=== PATIENT | male | born 1965 | race Caucasian/White ===

== ENCOUNTER 2018-02-03 10:05 | Emergency (ER) | payer OTHER, SELFPAY ==
[2018-02-03 10:06] VITALS: BP 150/10; PULSE 106; RESP 14; TEMP 35.9; BMI 40.1
[2018-02-03 10:24] VITALS: BP 155/100; PULSE 87; RESP 16
[2018-02-03] MEDS: Naproxen 500 MG Tablet PO (10:28)
--- NOTE | 2018-02-03 10:35 | RAD_ITS ---
STUDY: X-RAY - RIGHT KNEE REASON FOR EXAM: Male, 52 years old. One-month history of pain. TECHNIQUE: 4 view(s) of the knee. COMPARISON: None. FINDINGS: Normal visualized distal femur. Normal visualized proximal tibia and fibula. Normal proximal tibiofibular articulation. There is mild degenerative arthrosis of the medial femorotibial compartment. Normal lateral femorotibial compartment. Normal patellofemoral articulation. Questionable 8.3 mm x 4.5 mm intra-articular loose body. The soft tissue structures are unremarkable. RAD/Knee 4 or More Views IMPRESSION: Degenerative arthrosis. Questionable 8.3 mm x 4.5 mm intra-articular loose body. Electronically Signed: Chandelr Medina MD at 12:34 EDT Tel [phone], Service support ,
--- NOTE | 2018-02-03 10:41 | RAD_ITS ---
STUDY: X-RAY - RIGHT SHOULDER REASON FOR EXAM: Male, 52 years old. 3 month history of shoulder pain. TECHNIQUE: 4 view(s) of the shoulder. COMPARISON: None. FINDINGS: Normal glenohumeral articulation. There is degenerative arthrosis of the acromioclavicular joint without inferior osseous spur formation. Normal acromion. Normal humeral head and visualized proximal humerus. The soft tissue structures are unremarkable. Normal visualized pulmonary apex. RAD/Shoulder min 2 Views IMPRESSION: Degenerative changes of the left acromioclavicular joint. Electronically Signed: Chandler Medina MD at 11:12 EDT Tel [phone], Service support ,
--- NOTE | 2018-02-03 10:45 | RAD_ITS ---
STUDY: X-RAY - LEFT KNEE REASON FOR EXAM: Male, 52 years old. One-month history of pain. TECHNIQUE: 4 view(s) of the knee. COMPARISON: None. FINDINGS: Normal visualized distal femur. Normal visualized proximal tibia and fibula. Normal proximal tibiofibular articulation. There is mild degenerative arthrosis of the medial femorotibial compartment. Normal lateral femorotibial compartment. Normal patellofemoral articulation. The soft tissue structures are unremarkable. RAD/Knee 4 or More Views IMPRESSION: Degenerative arthrosis. Electronically Signed: Chandler Medina MD at 11:26 EDT Tel [phone], Service support ,
--- NOTE | 2018-02-03 11:57 | ED.DCSUM_ITS ---
- ER Visit Summary Date of Service: 02/03/18 Chief Complaint: Left shoulder and bilateral knee pain History of Present Illness: The patient is a [address] Luis Gallardo. 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 He feels that over the past 18 months doing this he has injured his left shoulder. States that he has had pain in his left shoulder for the past 3-4 months. It is a constant aching pain that is 6 out of 10 currently and 10 out of 10 at worst. Reports that it is sharp after moving carts. He reports that he has bilateral knee pain. States that that is 8 out of 10 at worst and through 10 currently. It is increased with getting into his truck or standing from a seated position. He denies any trauma. No fall or MVA. Physical Examination: Vitals: Stable. Afebrile. Neck: No vertebral tenderness. Full ROM without difficulty. Cleared by NEXUS criteria. Back: No vertebral tenderness. General: A&O x 3. NAD. Cardiovascular exam: Regular rate and rhythm, no murmur, rub or gallop. Respiratory exam: Chest nontender. No crepitus. Clear to auscultation bilaterally. No wheezes or stridor. Abdominal exam: Soft, nontender, nondistended, normal bowel sounds. No pain in RUQ or LUQ specifically. No peritoneal signs. Extremity: Mild tenderness palpation is diffuse over his entire left deltoid. There is no localized tenderness. He is neurovascular intact distal this with normal sensation light touch and less than 2 second capillary refill. He has a 2+ radial pulse. No pain with range of motion. Mild tenderness palpation is diffuse over both knees. No pain or ligamentous instability with anterior posterior drawer or medial lateral stress. He is neurovascular intact distally. Test Results: Clinical Impression(s) from Imaging Studies Knee X-Ray 02/03/18 10:35 IMPRESSION: Degenerative arthrosis. Questionable 8.3 mm x 4.5 mm intra-articular loose body. Electronically Signed: Chandler Medina MD at 12:34 EDT Tel [phone], Service support , Shoulder X-Ray 02/03/18 10:41 IMPRESSION: Degenerative changes of the left acromioclavicular joint. Electronically Signed: Chandler Medina MD at 11:12 EDT Tel [phone], Service support , Knee X-Ray 02/03/18 10:45 IMPRESSION: Degenerative arthrosis. Electronically Signed: Chandler Medina MD at 11:26 EDT Tel [phone], Service support , Emergency Department Course and Treatment: Patient was treated with naproxen and is resting comfortably. Treatment Plan: I discussed with the patient that I cannot say in good conscious that this is related to his work. He feels sure that it is. He will be discharged on naproxen instructed to follow-up at [facility] for further evaluation of his shoulder and knees. I did discuss them the possibility that he may have damaged the rotator cuff in his left shoulder and he understands this. Also discussed possibility of meniscal injuries in his knees. Disposition: To home in improved and stable condition. Impression: 1. Arthritis left AC joint. 2. Arthritis to knees bilaterally. This note was generated with [employer] dictation software. It may contain incorrect words, spelling, and punctuation that were not noted in review of the chart prior to signing ED Disposition - Plan for ED Patient: Disposition: Home or Assisted Living Chief Complaint: Upper Extremity Injury Instructions: ED Shoulder Pain UKO Prescriptions: Naproxen [Naprosyn] 500 mg PO BID #14 tablet [facility]errals: [facility]YS[facility]] - As soon as possible
[2018-02-03 12:50] VITALS: PULSE 80; O2SAT 99
== END 2018-02-03 12:52 | disposition home or self-care (01) ==
PROVIDERS: Emergency Provider Emergency Medicine; Family Provider Family Medicine; PCP Family Medicine
DX: M19.012 Primary osteoarthritis, left shoulder (principal); M17.0 Bilateral primary osteoarthritis of knee
CPT/HCPCS: 73030; 73564; 99284

== ENCOUNTER 2018-06-26 10:00 | Outpatient (RCR) | payer MEDICAID, SELFPAY ==
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
--- OUTSIDE RECORDS SUMMARY | 2018-08-03 03:24 | XMS RPT_ITS ---
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 Repository [id number]: [phone] [id number] [phone] () Date:[id number], [place] [address]JG: 02/03/2018 Secondary MCKAYLA Salter Naz [facility] VO[place] Community Number: [id number] Hospital [id number] Repository Date:7512-28-86[id number] [place] [id number]: 02/03/2018 Tertiary NOT GIVENSARAVANAN Naz Insurance:SELF PAY [facility] Number: Effective Repository Date:2018-02-03
--- NOTE | 2018-08-20 14:25 | HP.PTDCSUM ---
HP - PT D/C Summary It has been my pleasure to treat MCKAYLA RAMSAY under orders from ANY Swartz, for the diagnosis of BILATERAL KNEE ARTHRITIS,PROBABLE RIGHT MENISCUS DEGENERATION for a total of 6 visit(s). Discharge Date: Please see the following information for a summary of their discharge status. - Subjective Subjective: Some improvement in knee's and shoulder. Paln to RTD - Pain Bilateral Knee Pain Intensity (Out of 10): 7 Left Shoulder Pain Intensity (Out of 10): 5 Right Shoulder Pain Intensity (Out of 10): 5 - Overall Improvement % Improvement: 50 - Objective Objective/Function: POSTURE: ROUNDED SHOULDERS HEAD FOWARD. GAIT: NORMAL JOSELINE RECIPROCAL. AROM: 0-110 degrees supine flexion. MMT: quads/hams 4/5,hip flexion 4-/5,ankle 4/5. RTC 4-/5 ,SUPRASPINATOUS 3+/5. AROM: shoulder flexion 120 degrees,110 abduction ,ER 80 degrees - Goals Goal 1:: Independant with HEP. Goal Progress: Progressing Goal 2:: Patient to decrease pain by 60% or greater to improve function with walking Goal Progress: Progressing Goal 3:: Patient increase strength by 4/5 to improve function with walking and stairs. Goal Progress: Progressing Goal 4:: Patient improve ROM right knee by 5 degrees or greater to improve stairs Goal Progress: Progressing Goal 5:: Patient to improve LFES score by 5-10points to improve QOL. Goal Progress: Progressing - Plan Plan: RTD - D/C Information If there are questions or concerns regarding this patient's physical therapy, please feel free to call me at [phone]. Thank you for the referral of this patient. Sincerely, Martín Beebe, PT, Cert MDT, OCS
== END 2018-06-26 19:00 | disposition home or self-care (01) ==
LOC: PT 10:00
PROVIDERS: Family Provider Family Medicine; PCP Family Medicine; Referring Provider Physician Assistant; Visit Provider Physician Assistant
DX: M17.0 Bilateral primary osteoarthritis of knee (principal); M25.812 Other specified joint disorders, left shoulder
CPT/HCPCS: 97110; 97162; 97530

== ENCOUNTER → 2018-07-08 16:49 | Outpatient (CLI) | payer MEDICAID, SELFPAY ==
[2018-06-27 11:24] VITALS: BMI 40.1
--- NOTE | 2018-07-08 16:50 | MRI_ITS ---
STUDY: MRI LEFT KNEE REASON FOR EXAM: Left knee pain, evaluate for internal derangement. TECHNIQUE: Standardized fat and water weighted pulse sequences were obtained in all 3 orthogonal planes. COMPARISON: Radiographs 02/03/2018. FINDINGS: Although there is image degradation secondary to patient motion on the proton-density sagittal sequence, there is still significant diagnostically useful information available from this examination. There is a suspected small oblique tear of the inferior articular surface of the posterior horn of the medial meniscus (proton-density sagittal images 5, 6). Normal hyaline cartilage of the medial femorotibial compartment. Normal medial femoral condyle and tibial plateau. Normal medial collateral ligamentous complex (MCL). Normal distal semimembranosus, gracilis and semitendinosus tendons. Normal lateral meniscus. Normal hyaline cartilage of the lateral femorotibial compartment. Normal lateral femoral condyle and tibial plateau. Normal proximal tibiofibular articulation. Normal lateral collateral (fibular) ligament. Normal popliteus tendon. Normal biceps femoris tendon. Normal anterior cruciate ligament (ACL). Normal posterior cruciate ligament (PCL). Normal congruent patellofemoral articulation. Normal hyaline cartilage of the patellofemoral compartment. Normal medial and lateral patellar retinaculum. Normal visualized quadriceps tendon. There is enthesopathy of the patella. Normal patellar tendon. Normal Hoffa's fat pad. There is a minimal volume of fluid in the knee joint. There is mild prepatellar bursitis (T2 sagittal images 10-12). The otherwise visualized osseous structures are unremarkable. MRI/Lower Ext Joint Only (Routine) IMPRESSION: Suspected small medial meniscal tear. Mild prepatellar bursitis. Electronically Signed: Vini Westbrook MD at 10:37 EST Tel , Service support ,
--- NOTE | 2018-07-08 16:50 | MRI_ITS ---
STUDY: MRI RIGHT KNEE REASON FOR EXAM: Right knee pain, knee surgery in 1995. TECHNIQUE: Standardized fat and water weighted pulse sequences were obtained in all 3 orthogonal planes. COMPARISON: Radiographs 02/03/2018. FINDINGS: There is a flap tear of the medial meniscus with a displaced fragment in the medial gutter (T2 coronal images 8-12). There is mild arthrosis of the medial femorotibial compartment with mild partial-thickness chondral loss of the medial femoral condyle (T2 sagittal image 5). Normal medial femoral condyle and tibial plateau. Normal medial collateral ligamentous complex (MCL). Normal distal semimembranosus, gracilis and semitendinosus tendons. Normal lateral meniscus. There are postsurgical changes with a healed osteochondral lesion of the lateral femoral condyle (proton-density sagittal images 32-34). Normal proximal tibiofibular articulation. Normal lateral collateral (fibular) ligament. Normal popliteus tendon. Normal biceps femoris tendon. Normal anterior cruciate ligament (ACL). Normal posterior cruciate ligament (PCL). Normal congruent patellofemoral articulation. Normal hyaline cartilage of the patellofemoral compartment. Normal medial and lateral patellar retinaculum. Normal visualized quadriceps tendon. The patella enthesopathy Normal patellar tendon. Normal Hoffa's fat pad. There is a small joint effusion. There is an intra-articular body posterior to the root of the posterior horn of the medial meniscus (T2 coronal images 5, 6) measuring 0.8 cm in length. There is mild edema in the anterior and medial subcutis adipose space. The otherwise visualized osseous structures are unremarkable. MRI/Lower Ext Joint Only (Routine) IMPRESSION: Medial meniscal tear. Mild arthrosis of the medial femorotibial compartment. Healed osteochondral lesion of the lateral femoral condyle. Posterior intra-articular body. Small joint effusion. Electronically Signed: Vini Westbrook MD at 10:36 EST Tel , Service support ,
== END ==
PROVIDERS: Family Provider Family Medicine; PCP Family Medicine; Referring Provider Physician Assistant; Visit Provider Physician Assistant
DX: M17.0 Bilateral primary osteoarthritis of knee (principal); M23.91 Unspecified internal derangement of right knee; M23.92 Unspecified internal derangement of left knee
CPT/HCPCS: 73721

== ENCOUNTER 2018-07-29 10:18 | Day surgery (SDC) | payer MEDICAID, SELFPAY ==
[2018-07-21 08:21] VITALS: BMI 41.1
[2018-07-29 10:57] VITALS: BP 136/65; PULSE 68; RESP 18; TEMP 36.9; O2SAT 99; BMI 41.5
[2018-07-29] MEDS: Bupivacaine Mpf 0.5% 30 ML VIAL (11:09)
[2018-07-29] MEDS: Cefazolin 2 GM in 0.9% Normal Saline 100 ML IV (11:50)
[2018-07-29] MEDS: MethylPREDNISolone Acetate 80 MG/ML Vial (12:55)
[2018-07-29] MEDS: Morphine 4 MG/ML Syringe (12:55)
[2018-07-29] MEDS: Bupiv/Epi 0.5% Mpf 30 ML Vial (13:00)
--- NOTE | 2018-07-29 13:14 | DCINST_ITS ---
Additional Instructions: Ice and elevate next 72 hours .keep dressing on clean and dry for 48 hours then may remove begin showering daily but do not submerge in tub or pool. After shower may apply Band-Aids . Encourage knee range of motion weightbearing as tolerated, use crutches until confident in knee then may discontinue. No strenuous activity. When not ambulating keep iced and elevated next 72 hours. Allergies/Adverse Reactions: Allergies No Known Allergies Allergy (Verified 07/22/18 13:03) Medications to take at Discharge Ibuprofen 200 mg PO PRN PRN 07/22/18 Hydrocodone Bitart/Apap 5-325 [[place] 5MG-325MG] 1 - 2 tablet PO Q4H PRN PRN 5 Days #50 tablet 07/29/18 The following prescriptions were given: Hydrocodone Bitart/Apap 5-325 [[place] 5MG-325MG] 1 - 2 tablet PO Q4H PRN PRN 5 Days #50 tablet PRN Reason: Pain Primary Care Physician: Luis Gallardo DO [Primary Care Provider] - Test Results: Test results from this visit will be discussed in further detail at your follow- up appointment, if applicable. Please Follow Up With: Jin Neely DO - 2 wk
[2018-07-29 13:19] VITALS: BP 136/65; BP 153/98; PULSE 74; RESP 16; TEMP 36.3; O2SAT 94
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
[2018-07-29 13:30] VITALS: BP 136/65; BP 150/88; PULSE 76; RESP 16; O2SAT 95
[2018-07-29 13:45] VITALS: BP 136/65; BP 142/84; PULSE 77; RESP 16; O2SAT 94
[2018-07-29 13:54] VITALS: BP 136/65; BP 144/76; PULSE 74; RESP 16; TEMP 36.8; O2SAT 94
[2018-07-29 14:24] VITALS: BP 136/65; BP 143/74; PULSE 74; RESP 16; TEMP 36.8; O2SAT 94
== END 2018-07-29 14:26 | disposition home or self-care (01) ==
LOC: SDC 10:18 → AC 10:19
PROVIDERS: Family Provider Family Medicine; PCP Family Medicine; Referring Provider Orthopaedic Surgery; Visit Provider Orthopaedic Surgery
PROC: (CPT 29870; principal; 2018-07-29 11:30)
DX: M23.221 Derangement of posterior horn of medial meniscus due to old tear or injury, right knee (principal); Z87.891 Personal history of nicotine dependence; I10 Essential (primary) hypertension; G25.81 Restless legs syndrome; M25.861 Other specified joint disorders, right knee
CPT/HCPCS: 29881; J7120; J2405

== ENCOUNTER 2018-09-16 13:51 | Outpatient (RCR) | payer MEDICAID, SELFPAY ==
[2018-09-08 09:05] VITALS: BMI 41.5
--- NOTE | 2018-09-18 15:47 | HP.OTFCE_ITS ---
HP OT Functional Capacity Eval - Task Lift Floor (Occasional 1-33% of Day): 50lb Floor (Frequent 34-66% of Day): 25lb Floor (Constant 67-100% of Day): 10lb Floor PDL: Medium Knee (Occasional 1-33% of Day): 50lb Knee (Frequent 34-66% of Day): 25lb Knee (Constant 67-100% of Day): 10lb Knee PDL: Medium Waist (Occasional 1-33% of Day): 55lb Waist (Frequent 34-66% of Day): 27.5lb Waist (Constant 67-100% of Day): 11lb Waist PDL: Medium Shoulder (Occasional 1-33% of Day): 45lb Shoulder (Frequent 34-66% of Day): 23lb Shoulder (Constant 67-100% of Day): 10lb Shoulder PDL: Light-Medium Overhead (Occasional 1-33% of Day): 6lb Overhead (Frequent 34-66% of Day): Negligible Overhead (Constant 67-100% of Day): Negligible Overhead PDL: Sedentary - Work Activity/Posture Bending: Frequent Ability (34-66% of day) Squatting: Occasional Ability (1-33% of day) Kneeling: Occasional Ability (1-33% of day) Reaching out: Frequent Ability (34-66% of day) Reaching up: Frequent Ability (34-66% of day) Sitting: Constant Ability (67-100% of day) Walking: Occasional Ability (1-33% of day) Standing: Occasional Ability (1-33% of day) - Reference Duration Sedentary Sedentary Light Light Light Medium Medium Medium Heavy Very Heavy Heavy Occasional (0-33% of day) Frequent (34-66% of day) Constant (67-100% of day) 10 # Negligible Negligible 15 # 8 # Negligible 20 # 10# Negli. 35 # 18 # 7 # 50 # 25 # 10 # 75 # 100 # >100 # 38 # 50 # >50 # 15 # 20 # >20 # - Patient Information Height: 6 ft 5 in Weight:: 149.685 kg Hand Dominance: Right - Medical History Medical History Including Restrictions: Pt did not bring medical hx and reports the following PMHx: HTN, R shoulder sx x2, R total shoulder sx 2016, R knee sx 96, R knee scope 2019. toncilectomy, arthritis and meniscus tear L knee. L shoulder pain. Arthritis in spine. States waiting for R knee brace. - Diagnoses Diagnoses: Pt did not bring medical hx and reports the following PMHx: HTN, R shoulder sx x2, R total shoulder sx 2016, R knee sx 96, R knee scope 2019. toncilectomy, arthritis and meniscus tear L knee. L shoulder pain. Arthritis in spine. - Symptoms Symptoms: Pt reports the following: R knee symptoms includes pops bilateral knees, stabbing/throbbing pain, burning pain L side lower knee. Pain, stabbing, aching, throbbing, nagging pain bilateral shoulders, catches and pops of bilateral shoulders. Dizzy, nauseated when goes to get out of bed or rolls over in bed. R hip pain when walking. - Pain Pain: Pt states the following: R shoulder pain 3/10, L shoulder pain 3/10, R knee pain 4/10, L knee pain 2/10 while seated in beginning of evaluation. Lower/middle back pain 6/10. 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 2018-present unemployeed. - ADLS ADLS: Pt reports lives with mother in mobile home, 5 steps to enter 2 handrails, uses L handrail going up steps. Independent with AMB, no DME available. Independent with BADL's. Std toilet seats, no AE in bathroom. Mother completes IADL tasks (meal prep, laundry, cleaning). Independent with driving. Right hand dominent. Indep with going to grocery store states can walk around store 10-20 minutes then has to sit or will usually go to car when shopping with kids and let them finish shopping. Chidren assist with father when needed, bending down to get things, carrying objects, carry groceries, tying shoes when needed. Sleeps in regular bed. - Physical Examination ROM: AROM R UE shoulder flexion 100' R shoulder abduction 96', slight limited internal rotation to reach behind back, external rotation shoulder WFL, elbow WFL, wrist/hand WFL. AROM L UE shoulder flexion 163, L shoulder abduction 130', Internal/External Rotation shoulder WFL, elbow WFL, wrist/hand WFL. AROM BLE WFL Strength: R UE MMT 3+/5. L UE MMT 4/5. 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 Monofilament R hand finger tips 2.83 (normal), L hand finger tips 2.83 (normal). Fine Motor: Pt reports difficulty with buttoning pants and zipping on jeans, usually wears athletic pants instead. Pt states able to zip coat independently. 9 hole peg test R hand 27.6, L hand 23 seconds. Balance: Pt states 3 falls in past 6 months, 2 were on the steps and one was stepping outside the shed onto uneven surface. - Non Material Handling Activities Bending: Pt unable to touch down to floor when bending, pt able to reach down and touch box 14 inches from floor, 1x, 10x, 10x fast w/o loss of balance noted. Pt stated increased bilateral knee pain with bending 8/10. Squatting: Squatting, 1x, 8x, pt reports unable to complete more squats secondary to pain and decreased leg strength. Pt reports 8/10 bilateral knee pain. Completed squats using L hand on desk for support and therapist standing beside him with use of gait belt. Kneeling: Kneeling, 2x very unsteady to complete kneeling tasks, therapist holding onto gait belt CGA to assist pt back up to upright position pt using L hand on desk for support to come up. Unsteady. Reaching out/up: Reaching up 1x, 10x, 10x fast (while standing). Reaching out L/R 1x, 10x, 10x fast (while standing). No loss of balance while standing and reaching noted. R shoulder pain after reaching 7/10. L shoulder pain after reaching 5/10 Walking: Pt able to complete 8 minute of 15 minute walk test requiring standing rest break 5 minutes into walk, Pt stated had to sit because of bilateral knee pain 8 minutes into walk before 15 minute walk test complete. No loss of balance noted during walk test. R knee pain 7/10, L knee pain 5/10, 8/10 pain back Standing: Pt able to stand 5-6 minutes at a time w/o need to sit down. Sitting: Pt able to sit in beginning of evaluation for 45 minutes w/o s/s of pain or discomfort. Climbing Stairs: Pt able to climb 10 steps up and down using bilateral handrails one step at a time. - Dynamic Occasional Lifting Capacity Floor Lift: 50lb max Knee Lift: 50lb max Waist Lift: 55lb max Shoulder Lift: 45lb max Overhead Lift: 6lb max Carryinlb max Comments: Pt reports R knee pain after lifting 8/10, L knee after lifting 6/10, Back 7/10, R shoulder 7/10, L shoulder 5/10.
--- NOTE | 2019-04-15 14:33 | HP.OT.NRP ---
HP - Discharge Summary - Patient Information MCKAYLA RAMSAY was seen in my office for initial evaluation on . The following Plan of Care was established for this patient: This patient was last seen in our office 09/16/18. Pertinent comments regarding their Occupational therapy will appear below: Pt seen for FCE only. D/C OT POC At this point I will be discontinuing this patient from occupational therapy. I would be happy to see this patient again in the future if found appropriate by the physician. Thank you! Digna Victor
== END 2018-09-16 19:00 | disposition home or self-care (01) ==
LOC: OT 13:51
PROVIDERS: Family Provider Family Medicine; PCP Family Medicine; Visit Provider Physician Assistant
DX: Z79.899 Other long term (current) drug therapy (principal)
CPT/HCPCS: 97165; 97167

== ENCOUNTER → 2018-09-22 | Outpatient (CLI) | payer MEDICAID, SELFPAY ==
[2018-09-08 09:05] VITALS: BMI 41.5
--- NOTE | 2018-09-22 06:33 | MRI_ITS ---
STUDY: MRI LEFT SHOULDER REASON FOR EXAM: Left shoulder pain, weakness, limited range of motion, injury. TECHNIQUE: Standardized fat and water weighted pulse sequences were obtained in all 3 orthogonal planes. COMPARISON: Radiographs 02/03/2018. FINDINGS: There is supraspinatus tendinosis and a small linear intrasubstance partial-thickness tear of the distal supraspinatus tendon at the greater tuberosity insertion (T2 coronal image 10). Normal infraspinatus tendon. Normal subscapularis tendon. Normal teres minor tendon. Normal supraspinatus muscle. Normal infraspinatus muscle. Normal subscapularis muscle. There is mild atrophy with mild partial fat replacement of the teres minor muscle (T2 axial image 15). Normal glenohumeral articulation. Normal humeral head and visualized proximal humerus. Normal biceps labral complex. Normal intracapsular long biceps tendon. Normal labrum. Normal capsulo- ligamentous complex. There is acromioclavicular arthrosis with mild hypertrophic changes effacing subacromial fat (T2 sagittal image 8). There is a Type II morphology (curved), with a neutral orientation. There is no subacromial-subdeltoid bursal fluid. Normal visualized coracohumeral and coracoacromial ligaments. Normal deltoid muscle. Normal trapezius muscle. MRI/Upper Ext Joint Only(Routine) IMPRESSION: Small intrasubstance partial-thickness tear and tendinosis of the supraspinatus tendon. Mild atrophy of the teres minor muscle. Acromioclavicular arthrosis. Electronically Signed: Vini Westbrook MD at 9:27 EDT Tel , Service support ,
== END | disposition home or self-care (01) ==
LOC: MRI 06:32
PROVIDERS: Family Provider Family Medicine; PCP Family Medicine; Referring Provider Physician Assistant; Visit Provider Physician Assistant
DX: M25.512 Pain in left shoulder (principal)
CPT/HCPCS: 73221

== ENCOUNTER 2019-03-26 12:24 | Emergency (ER) | payer MEDICAID, SELFPAY ==
[2018-10-01 10:35] VITALS: BMI 41.5
[2019-03-26 12:24] VITALS: BP 166/90; PULSE 100; RESP 16; TEMP 37.4; O2SAT 95; BMI 37.9
--- NOTE | 2019-03-26 12:50 | ED.VIS.DENTA ---
History of Present Illness Chief Complaint: Dental Informant: Patient Onset: Yesterday Context: Gradual Onset Associated Symptoms: Facial Swellling Narrative: Patient is a 53-year-old male with history of hypertension presenting with dental pain and swelling. Patient states he has had bad teeth and multiple cavities for years but over the past month he has been having more trouble. He notes earlier this month he had some pain of his right lower tooth. He did mouthwash gargles that seemed to help with the symptoms worsened over the past few days ago. This morning when he woke up he noticed that his lower jaw/face seems swollen. Patient has an appointment to see his dentist on Saturday, 4 days from now but that he might need antibiotics in the meantime. He states the pain is only mild. He denies any other complaints at this time. Is not having difficulty swallowing and denies any fever, chills, myalgias, nausea, vomiting or other symptoms. Prior similar symptoms: Yes Recent Illness/Hospitalization: No Past Medical History - Allergies and Home Meds Allergies/Adverse Reactions: Allergies No Known Allergies Allergy (Verified 03/26/19 12:31) Primary Care Physician: Luis Gallardo DO [Primary Care Provider] - Past Medical History: - - Hypertension Surgical History: noncontributory Smoking Status: Former smoker Review of Systems General: Denies: Chills, Fever, Sweats Eyes: Denies: Visual changes - bilaterally, Diplopia ENT: Reports: - - Right lower dental pain. Denies: Rhinorrhea, Sore throat Cardiovascular: Denies: Chest pain, Palpitations Respiratory: Denies: Dyspnea, Cough Gastrointestinal: Denies: Abdominal pain, Nausea, Vomiting Musculoskeletal: Reports: Back pain. Denies: Myalgias, Extremity Pain Skin: Denies: Rash, Wounds Neurological: Denies: Headache, Weakness, Numbness Physical Exam Vital Signs/Narrative: Vital Signs Temp Pulse Resp BP Pulse Ox 03/26/19 12:24 99.4 F H 100 16 166/90 H 95 Inital Vital Signs reviewed: Yes General: Well nourished, Well developed Head: Normocephalic, Atraumatic ENT: Moist mucous membranes, No rhinorrhea, TM's clear Mouth/Throat: Normal inspection lips/gums, Normal oral mucosa, Widespread dental decay, - - Sublingual mucosa is soft, mild swelling of the mucosa at the area of the right lower canine and premolar, no fluctuance appreciated with it, minimally tender. Negative for: Dental trauma, Dental abscess Neck: Supple, No lymphadenopathy, Nontender, No JVD Cardiovascular: Regular rate, Regular rhythm, No murmurs Respiratory: No distress, CTA bilaterally, Chest nontender Back: Nontender, Normal Inspection Extremities: Nontender, No edema Skin: Normal color, No rash Neurological: Alert, Oriented x3, Cranial nerves II-XII grossly intact Psychological: Normal affect Diagnostic/Tx/Re-eval - Medical Decision Making Patient is dental pain and facial swelling. Does not have signs or symptoms consistent with any airway obstruction or Haroon's angina. Do not appreciate a discrete area of fluctuance amenable to incision and drainage right now. There is no overlying cellulitic changes. Patient be started on penicillin and Motrin. He has appointment to see his dentist on Saturday. He is given the dental clinic sheet as well. He is counseled that this might worsen and he might eventually need an incision and drainage if he develops an abscess. Patient is counseled on signs and symptoms requiring return to the emergency room. Patient verbalizes agreement and understand this plan. Patient discharged home in stable and improved condition. ED Disposition - Plan for ED Patient: Disposition: Psychiatric Hospital or Unit Diagnosis: Dentalgia, Facial swelling Instructions: Dental Abscess Prescriptions: Ibuprofen [Motrin] 600 mg PO Q6H PRN PRN #15 tab PRN Reason: Pain Or Fever Prescription Printed Penicillin V Potassium 500 mg PO 4X/DAY #40 tab Prescription Printed Referrals: Luis Gallardo DO [Primary Care Provider] - Additional Instructions: Continue to gargle with Listerine/mouthwash. Return to emergency room with worsening symptoms. It is very important that you follow-up with your dentist.
[2019-03-26] MEDS: Ibuprofen 600 MG Tablet PO (13:08)
[2019-03-26] MEDS: Penicillin Vk 250 MG Tablet 500 MG PO (13:08)
== END 2019-03-26 13:17 ==
PROVIDERS: Emergency Provider Emergency Medicine; Family Provider Family Medicine; PCP Family Medicine
DX: K08.89 Other specified disorders of teeth and supporting structures (principal); R22.0 Localized swelling, mass and lump, head; K02.9 Dental caries, unspecified; I10 Essential (primary) hypertension; Z87.891 Personal history of nicotine dependence
CPT/HCPCS: 99283

== ENCOUNTER → 2019-05-19 11:58 | Outpatient (CLI) | payer MEDICAID, SELFPAY ==
[2019-05-19 11:46] VITALS: BMI 37.9
--- NOTE | 2019-05-19 12:43 | EKG12_ITS ---
Test Reason : CP Blood Pressure : / mmHG Vent. Rate : 071 BPM Atrial Rate : 071 BPM P-R Int : 148 ms QRS Dur : 118 ms QT Int : 394 ms P-R-T Axes : 058 -11 033 degrees QTc Int : 428 ms Normal sinus rhythm Incomplete right bundle branch block Borderline ECG Confirmed by ARMEN POWERS, REINA ([id number]), sound editor JONATAN OLSEN ([id number]) on 05/20/2019 10:34:35 AM Referred By: Luis Gallardo Confirmed By:REINA AYERS MD
[2019-05-19 12:59] LABS: BUN 12 mg/dL (7-18); Creatinine, Serum 0.98 mg/dL (0.70-1.30); Glucose 94 mg/dL (74-106)
[2019-05-19 13:00] LABS: Anion Gap 4 (5-15); BUN/Creat Ratio 12.2 RATIO (10-20); Calcium,Total 8.8 mg/dL (8.5-10.1); Chloride 109 mmol/L (98-107); Cholesterol 201 mg/dL (200); EST Glomerular Filtration Rate 85 mL/min (>60); Est Glom Filt Rate - Afr Amer 103 mL/min (>60); High Density Lipoprotein 33 mg/dL; Potassium 4.1 mmol/L (3.5-5.1); Sodium Level 142 mmol/L (136-145); Triglycerides 259 mg/dL; Very Low Density Lipoprotein 52 mg/dL (5-40)
== END ==
PROVIDERS: Family Provider Family Medicine; PCP Family Medicine; Referring Provider Family Medicine; Visit Provider Family Medicine
DX: R07.9 Chest pain, unspecified (principal)
CPT/HCPCS: 36415; 80048; 80061; 93005

== ENCOUNTER → 2019-06-03 06:30 | Outpatient (CLI) | payer MEDICAID, SELFPAY ==
[2019-05-19 11:46] VITALS: BMI 37.9
--- NOTE | 2019-06-04 14:09 | STRESSREP_ITS ---
Stress Test Report Date: 06/03/2019 Procedure: Pharmacologic stress nuclear imaging study Indications: Chest pain Consent: Per the patient Procedure: The patient underwent pharmacologic (Regadenoson) evaluation with a peak heart rate of 118 beats per minute (70 %predicted maximal heart rate) and a peak blood pressure of 168/88 mmHg. The baseline ECG demonstrated normal sinus rhythm, right bundle branch block. EKG during lexiscan infusion revealed no significant change from baseline. EKG post infusion revealed no significant change from baseline [There were no cardiac dysrhythmias pretest, during pharmacologic infusion, or recovery]. [There was no complaint of chest discomfort during pharmacologic infusion or recovery]. The examination was discontinued secondary to completion of protocol. Impression: 1. Lexiscan stress test test is negative for Lexiscan infusion induced EKG changes of ischemia. 2. Lexiscan stress test test is negative for Lexiscan infusion induced chest pain. 3. Results of the nuclear portion of the test is as below Myocardial perfusion imaging study: Technique: The patient was injected with 14.7 millicuries of technetium 99m Cardiolite and subsequently rest SPECT Cardiolite nuclear imaging was obtained in the horizontal long, vertical long, and short axis views. The patient underwent pharmacologic (Regadenoson) evaluation. Please see above for details. The patient was injected with 44.9 millicuries of technetium 99m Cardiolite and subsequently stress SPECT Cardiolite nuclear imaging was obtained in the horizontal long, vertical long, and short axis views. A gated Cardiolite study at peak stress was obtained. Interpretation: Rest and stress SPECT Cardiolite nuclear imaging status post realignment, normalization, and attenuation correction demonstrate mild decrease in the radioisotope uptake in the inferior wall on both the rest and stress images prior to attenuation correction that resolves with attenuation correction, suggestive of diaphragmatic attenuation artifact. There is otherwise normal myocardial radioisotope uptake. There is no evidence of significant ischemia or infarction. Gated images reveal significant regional wall motion abnormalities. The reported LVEF is 67 %. Impression: 1. There is no evidence of significant ischemia or infarction. 2. Estimated ejection fraction is 67%. This note was generated with [employer] software. It may contain incorrect words, spelling, and punctuation that were not noted in checking the note before signing.
== END ==
PROVIDERS: Family Provider Family Medicine; PCP Family Medicine; Referring Provider Family Medicine; Visit Provider Family Medicine
DX: R07.9 Chest pain, unspecified (principal)
CPT/HCPCS: 78452; 93017; A9500; A4216; J2785

== ENCOUNTER 2021-03-17 10:58 | Emergency (ER) | payer MEDICARE, MEDICAID, SELFPAY ==
[2021-03-17 10:59] VITALS: BP 209/96; PULSE 75; RESP 18; TEMP 36.6; O2SAT 99; BMI 40.3
--- NOTE | 2021-03-17 11:23 | CT_ITS ---
STUDY: CT ABDOMEN AND PELVIS WITHOUT CONTRAST REASON FOR EXAM: Male, 55 years old. Left flank pain RADIATION DOSAGE (If Supplied By Facility): CTDIvol = ( 23.85 ) mGy, DLP = ( 1501.83 ) mGycm TECHNIQUE: Transaxial images were obtained from the dome of the diaphragm to the symphysis pubis without oral contrast, and without intravenous contrast. Sagittal and coronal images were reconstructed. Individualized dose optimization techniques were used for this CT. COMPARISON: None. FINDINGS: Minimal degree of dependent linear atelectasis. The visualized portions of the heart are within normal limits. Normal liver. There are multiple small gallstones. Normal spleen. Normal pancreas. Normal bilateral adrenal glands. Normal right kidney. Normal left kidney. Normal visualized stomach. Normal small intestine. There are scattered colonic diverticula consistent with diverticulosis. The appendix is visualized and appears normal. There is scattered atherosclerotic calcification of the abdominal aorta, without a demonstrated aneurysm. Normal inferior vena cava. Normal retroperitoneum. Normal urinary bladder. There are prostatic calcifications. Normal abdominal wall. There are diffuse degenerative changes of the visualized lumbar spine. Minimal anterolisthesis of L5 on S1 with spondylolysis of the pars interarticularis at the L5 vertebra. CT/Abdomen/Pelvis without Cont IMPRESSION: Small gallstones. Scattered sigmoid diverticula. No obstructive uropathy is seen. Electronically Signed: Chandler Medina MD at 12:12 EDT , Service support ,
--- NOTE | 2021-03-17 11:25 | EX.ED.DYSGE1 ---
HPI History of Present Illness Chief Complaint: Flank Pain Informant: patient Onset/Context/Timing Onset: Days (2 days) Context: Gradual Onset Timing: Waxes and wanes Current Severity: Mild Maximum Severity: Moderate Narrative Narrative: Patient presents with left flank pain for the past 2 days. He initially thought he pulled a muscle but states pain does not seem to be worse with movement. Pain is been significantly worse at night when he tries to sleep. No urinary symptoms. No history of kidney stones. [facility] Medical History (Updated 03/17/21 @ 13:[address] Elzbieta Skinner MD) Arthritis Back problem Blood clot in vein Bone fracture Hearing problem High blood pressure history shoulder surgery Home Medications hydrocodone-acetaminophen 1 tab PO Q6H PRN 3 Days #10 tab 03/17/21 [Rx Last Taken Unknown] naproxen [Naprosyn] 500 mg PO BID PRN #20 tab 03/17/21 [Rx Last Taken Unknown] Allergy/AdvReac Type Severity Reaction Status Date / Time No Known Allergies Allergy Verified 03/17/21 11:00 Family History Other CVA (cerebral vascular accident) Hypertension Myocardial infarction Surgical History h/o right knee scope History of shoulder surgery Social History Smoking Status: Former smoker alcohol intake: current alcohol intake frequency: a few times a week Alcohol type: beer substance use type: does not use what type of physical activity do you participate in: none ROS ROS ED Constitutional Constitutional ED: Denies chills or fever(s) Eyes Eyes: Denies change in vision ENT ENT ED: Denies sore throat Cardiovascular Cardiovascular: Denies chest pain Respiratory/Chest Respiratory/Chest: Denies cough or dyspnea Gastrointestinal Gastrointestinal: Reports abdominal pain; Denies diarrhea, nausea or vomiting Genitourinary Genitourinary ED: Denies dysuria, hematuria or urinary frequency Musculoskeletal Musculoskeletal: Reports back pain Integumentary Denies rash Neurologic Neurologic: Denies headache(s) or weakness Allergic/Immunologic Allergic/Immunologic ED: Denies urticaria EXAM Physical Exam Const Vital Signs: 03/17/21 10:59 03/17/21 13:30 Temperature 98 F Temperature Source Temporal Pulse Rate 75 67 Respiratory Rate 18 16 Blood Pressure 209/96 H 164/91 H Blood Pressure Mean 133 115 Pulse Ox 99 98 Oxygen Delivery Method Room Air Positive well nourished and well developed General Appearance ED: well developed HEENT Reports moist mucous membranes Eyes PERRL and EOMs intact bilaterally Neck supple Chest Wall inspection of chest normal and palpation of chest normal Resp normal respiratory effort and clear to auscultation bilaterally Cardio regular rate and regular rhythm GI normal to inspection, nondistended, normoactive bowel sounds and non-tender Palpation: soft Back/Spine General Back: CVA tenderness left Neuro oriented x3 Sensorium / Orientation: alert Psych mental status grossly normal Skin no rashes or lesions noted MDM MDM MDM Narrative Medical decision making narrative: Patient was given Toradol, morphine, Zofran, IV fluids. Lab work, urinalysis, CT flank obtained. Lab Data Labs: Laboratory Results - last 24 hr 03/17/21 03/17/21 03/17/21 11:25 11:25 13:30 WBC 8.2 RBC 5.13 Hgb 14.6 Hct 43.9 MCV 85.6 MCH 28.5 MCHC 33.3 RDW Std Deviation 41.2 RDW Coeff of Mikayla 13.2 Plt Count 416 MPV 9.4 Immature Gran % (Auto) 0.400 Neut % (Auto) 62.9 Lymph % (Auto) 27.3 [place] % (Auto) 7.2 Eos % (Auto) 1.6 Baso % (Auto) 0.6 Absolute Neuts (auto) 5.2 Absolute Lymphs (auto) 2.25 Nucleated RBC % 0 Sodium 138 Potassium 4.0 Chloride 105 Carbon Dioxide 30.0 Anion Gap 3 L BUN 8 Creatinine 0.81 Estim Creat Clear Calc 131.39 Est GFR (MDRD) Af Amer 128 Est GFR (MDRD) Non-Af 106 BUN/Creatinine Ratio 9.9 L Glucose 108 H Calcium 9.0 Urine Color Yellow Urine Clarity Clear Urine pH 6.5 Ur Specific [place] 1.015 Urine Protein Negative Urine Glucose (UA) Normal Urine Ketones Negative Urine Occult Blood 10 H Urine Nitrite Negative Urine Bilirubin Negative Urine Urobilinogen Normal Ur Leukocyte Esterase Negative Urine RBC 0 SEEN Urine WBC 0 SEEN Ur Squamous Epith Cells 0 SEEN Urine Bacteria 0 SEEN Urine Mucus 0 SEEN Radiography Diagnostic Testing: Clinical Impression(s) from Imaging Studies Abdomen/Pelvis CT 03/17/21 11:23 IMPRESSION: Small gallstones. Scattered sigmoid diverticula. No obstructive uropathy is seen. Electronically Signed: Chandler Medina MD at 12:12 EDT , Service support , Treatment and Re-Evaluation Comments:: Lab work is unremarkable. Urinalysis shows no sign of acute infection or hematuria. CT scan reveals no source of the patient's left flank pain. 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 He did not remember pulling anything but wonders if it might be a deep muscle. He will be given analgesics and return instructions provided. Discharge Plan Triage Chief Complaint: Flank Pain ED Provider: Elzbieta Skinner Dx/Rx/DC Orders Clinical Impression: Left flank pain Instructions: ED Flank Pain, Uncertain Cause Prescriptions: New naproxen [Naprosyn] 500 mg tablet 500 mg PO BID PRN (Reason: pain) Qty: 20 RF: 0 hydrocodone-acetaminophen 5-325 mg tablet 1 tab PO Q6H PRN (Reason: pain) 3 Days Qty: 10 RF: 0 Primary Care Provider: Luis Gallardo Referrals: Luis Gallardo, DO [Primary Care Provider] - 1 Week if not improving Disposition Disposition: Home, Self Care
[2021-03-17] MEDS: Ondansetron 4 MG/2 ML Vial IV (11:33)
[2021-03-17] MEDS: Morphine 4 MG/ML Syringe IV (11:34)
[2021-03-17] MEDS: Ketorolac 30 MG/ML Syringe IV (11:34)
[2021-03-17] MEDS: 0.9% Normal Saline 1,000 ML 150 ML IV (11:34)
[2021-03-17 11:41] LABS: Absolute Lymphocyte Count 2.25 X10^3/uL (0.83-4.51); Absolute Neutrophil Count 5.2 X10^3/uL (2.0-7.7); Basophil# 0.05 X10^3/uL; Basophil% 0.6 % (0-1); Eosinophil# 0.13 X10^3/uL; Eosinophils% 1.6 % (0-5); Hematocrit 43.9 % (40-54); Hemoglobin 14.6 g/dL (13.0-16.5); Lymphocyte # 2.25 X10^3/ul (0.83-4.51); Lymphocyte % 27.3 % (19-41); Mean Corp Hgb Conc 33.3 g/dL (32-36); Mean Corpuscular Hgb 28.5 pg (27.0-32.0); Mean Corpuscular Volume 85.6 fL (80-94); Mean Platelet Vol. 9.4 fl (6.2-12.0); Monocyte# 0.59 X10^3/uL; Monocyte% 7.2 % (0-10); NRBC Flagged by Analyzer 0 % (0-5); Neutrophil # 5.18 X10^3/uL (2.7-7.7); Neutrophil % 62.9 % (47-70); Platelet Count 416 K/mm3 (150-450); RBC Distribution Width CV 13.2 % (11.6-14.6); RBC Distribution Width SD 41.2 fl (35.1-43.9); Red Blood Count 5.13 M/mm3 (4.6-6.2); White Blood Count 8.2 K/mm3 (4.4-11.0)
[2021-03-17 11:49] LABS: Anion Gap 3 (5-15); BUN 8 mg/dL (7-18); BUN/Creat Ratio 9.9 RATIO (10-20); Chloride 105 mmol/L (98-107); Creatinine, Serum 0.81 mg/dL (0.70-1.30); EST Glomerular Filtration Rate 106 mL/min (>60); Est Glom Filt Rate - Afr Amer 128 mL/min (>60); Estimated Creatinine Clearance 131.39 ml/min; Glucose 108 mg/dL (74-106); Sodium Level 138 mmol/L (136-145)
[2021-03-17 13:30] VITALS: BP 164/91; PULSE 67; RESP 16; O2SAT 98
[2021-03-17 13:35] LABS: Bacteria 0 SEEN /hpf (None Seen); Mucous, Urine 0 SEEN /hpf (<or=2+); Red Blood Cells-Urine 0 SEEN /hpf (0-5); Squamous Epithelial Cells - UA 0 SEEN /hpf (0-5); White Blood Cells 0 SEEN /hpf (0-5)
[2021-03-17 13:36] LABS: Color, Urine Yellow (Yellow); Glucose, Dipstick Normal (Normal); Ketone-Dipstick Negative (Negative); Leukocyte Esterase-Dipstick Negative /ul (Negative); Nitrite-Dipstick Negative (Negative); Occult Blood-Urine 10 /ul (Negative); Protein-Dipstick Negative (Negative); Specific Gravity, Urine 1.015 (1.002-1.030); Urine Bilirubin Dipstick Negative (Negative); Urine Clarity Clear (Clear); Urine Urobilinogen Normal (Normal); Urine pH 6.5 (5.0 - 8.0)
== END 2021-03-17 14:09 | disposition home or self-care (01) ==
PROVIDERS: Emergency Provider Emergency Medicine; PCP Family Medicine
DX: R10.9 Unspecified abdominal pain (principal); Z87.891 Personal history of nicotine dependence
CPT/HCPCS: 74176; 80048; 81001; 85025; 96361; 96374; 96375; 99283; J7030; A4216; J2405

== ENCOUNTER → 2024-04-29 | Outpatient (CLI) | payer MEDICARE, MEDICAID, SELFPAY ==
[2024-04-29 16:02] LABS: Anion Gap 5 (5-15); BUN 16 mg/dL (7-18); BUN/Creat Ratio 19.2 RATIO (10-20); Calcium,Total 9.3 mg/dL (8.5-10.1); Chloride 107 mmol/L (98-107); Creatinine, Serum 0.83 mg/dL (0.70-1.30); EST Glomerular Filtration Rate 101 mL/min (>60); Est Glom Filt Rate - Afr Amer 122 mL/min (>60); Glucose 99 mg/dL (74-106); PSA,Total- Diagnostic 2.25 ng/mL (0.0-4.0); Potassium 3.9 mmol/L (3.5-5.1); Sodium Level 141 mmol/L (136-145)
== END | disposition home or self-care (01) ==
PROVIDERS: PCP Family Medicine; Referring Provider Family Medicine; Visit Provider Family Medicine
DX: R35.0 Frequency of micturition (principal); N52.9 Male erectile dysfunction, unspecified
CPT/HCPCS: 36415; 80048; 84153; 84403